=== PATIENT | male | born 1960 | race Two or more races ===

== ENCOUNTER 2022-10-23 14:00 | Outpatient (CLI) | payer OTHER | END 2022-10-23 14:18 | disposition home or self-care (01) | LOC: RAD 14:00 | PROVIDERS: ATTEND Physical Medicine & Rehabilitation | DX: M54.6 Pain in thoracic spine (principal); M54.59 Other low back pain ==

== ENCOUNTER 2023-08-20 11:44 | Outpatient (CLI) | payer OTHER | END 2023-08-20 12:00 | disposition home or self-care (01) | LOC: RAD 11:44 | PROVIDERS: ATTEND Orthopaedic Surgery | DX: M25.512 Pain in left shoulder (principal); M79.671 Pain in right foot; M79.672 Pain in left foot ==

== ENCOUNTER 2023-08-27 10:35 | Outpatient (CLI) | payer OTHER | END 2023-08-27 10:49 | disposition home or self-care (01) | LOC: RAD 10:35 | PROVIDERS: ATTEND Orthopaedic Surgery | DX: M79.672 Pain in left foot (principal); M75.42 Impingement syndrome of left shoulder | CPT/HCPCS: 73718 ==